=== PATIENT | female | born 1985 | race Caucasian/White ===

== ENCOUNTER 2022-10-18 15:24 | Emergency (ER) | payer OTHER, SELFPAY ==
[2022-10-18] VITALS (7 sets, daily range): BP systolic 91–133; BP diastolic 63–101; PULSE 102–114; RESP 16–18; O2SAT 93–99
[2022-10-18] MEDS: SODIUM CHLORIDE 0.9% IV 1,000 ML 999 ML IV CONT (15:52)
[2022-10-18 16:07] LABS: Hematocrit 36.7 % (37.0-47.0); Hemoglobin 12.6 g/dL (12.0-15.0); Immature Platelet Fraction Pct 4.9 % (0.9-11.2); Mean Corpuscular HGB Conc 34.3 g/dl (32-36); Mean Corpuscular Hemoglobin 32.3 pg (26-34); Mean Corpuscular Volume 94.1 fl (80-100); Mean Platelet Volume 10.2 fl (7.4-10.4); Platelet Count Result 78 k/mm3 (150-375); Red Cell Distribution Width 13.8 % (11.5-14.5); White Blood Count 3.5 K/mm3 (4.5-10.0)
[2022-10-18 16:15] LABS: Alanine Aminotransferase 23 U/L (6-35); Albumin Level 4.6 g/dL (3.5-5.1); Alkaline Phosphatase 97 U/L (38-126); Anion Gap 16 mmol/L (8-16); Aspartate Amino Transferase 86 U/L (14-36); Bilirubin,Total 0.6 mg/dL (0.2-1.3); Blood Urea Nitrogen 6 mg/dL (7-17); Calcium 8.3 mg/dL (8.4-10.2); Carbon Dioxide 25 mmol/L (22-30); Chloride 98 mmol/L (98-107); Estimated CRCL calculation 98 ml/min; Estimated Glomerular Filt Rate > 60; Glucose 89 mg/dL (65-110); Lipase 209 U/L (23-300); Sodium 139 mmol/L (137-145)
[2022-10-18 16:35] LABS: Basophils Absolute Manual 0.03 K/mm3 (0.0-0.1); Basophils Percent Manual 1 % (0-1); Lymphocytes Absolute Manual 1.64 K/mm3 (1.1-4.5); Monocytes Absolute Manual 0.07 K/mm3 (0.1-0.90); Monocytes Percent Manual 2 % (3-9); Neutrophils Percent Manual 50 % (46-73); Total Cells Counted 100
[2022-10-18 16:36] LABS: Ethanol 515 mg/dL (<10); Platelet Estimate Decreased (Adequate); Schistocytes None Seen (NORMAL)
--- NOTE | 2022-10-18 18:15 | PC.NURSE ---
pts boyfriend, Rico Sellers, contacted ed. [facility] pt has been an alcoholic for several years. [facility] for last 2 weeks drinking has increased heavily and pt has stopped eating and caring for herself. [facility] pt has been admitted multiple times for etoh and being an unmedicated. [facility] pt can not come home.
--- NOTE | 2022-10-18 18:43 | ED.GENADULT ---
HPI - General Adult General Chief complaint: Alcohol Stated complaint: nosebleed, alcohol abuse Time Seen by Provider: 10/18/22 15:39 History of Present Illness HPI narrative: Patient is a 37-year-old female who presents ER with alcohol intoxication and epistaxis. She reports she started having nosebleed today. Denies trauma. She reports that she drinks 6 bottles of wine a day but is only had a couple drinks today. Denies fevers or chills or sweats. No chest pain or extremity discomfort. Related Data Allergies Allergy/AdvReac Type Severity Reaction Status Date / Time No Known Allergies Allergy Verified 10/18/22 17:03 Review of Systems Review of Systems: All systems reviewed & are unremarkable except as noted in HPI and below Constitutional: Constitutional: Denies chills, Denies fatigue and Denies fever(s) ENT: Reports epistaxis, Denies nasal congestion and Denies sore throat Cardiovascular: Cardiovascular: Denies chest pain, Denies rapid heart rate and Denies radiating jaw, neck or arm pain Respiratory: Respiratory: Denies cough and Denies dyspnea Gastrointestinal: Gastrointestinal: Denies abdominal pain and Denies nausea PMFSH Past Medical History Medical History (Updated 10/20/22 @ 00:00 by Jesus Nelson) History of alcoholism Surgical History Surgical History (Updated 10/18/22 @ 18:45 by Win Diaz MD) H/O breast augmentation Social History Social History (Updated 10/18/22 @ 18:45 by Win Diaz MD) Alcohol intake: current Alcohol use details: 6 bottles of wine a day. Exam Narrative: GENERAL: Intoxicated-appearing, well-nourished, and in no acute distress. HEAD: Normocephalic, atraumatic. EYES: PERRL and EOMI. ENT: Mucous membranes moist. Epistaxis right nare. CHEST: Clear to auscultation. No respiratory distress. HEART: Regular rate and rhythm. Normal peripheral pulses. ABDOMEN: Soft, nontender, nondistended, normal active bowel sounds. EXTREMITIES: Normal range of motion. No edema. SKIN: Warm, dry, no rash. NEURO: Alert and oriented x3. Course Course Emergency Course: Patient resting comfortably and clinically sober. Alcohol level less than 10. Patient did receive some chlordiazepoxide overnight for withdrawal symptoms. Patient feels comfortable with discharge and plans on going to [place] for inpatient alcohol rehabilitation. Vital Signs Vital signs: Vital Signs Pulse Rate 114 H 10/18/22 15:35 Respiratory Rate 16 10/18/22 15:35 Blood Pressure 133/101 H 10/18/22 15:35 Temperature 98.3 F 10/19/22 08:22 Pulse Rate 99 10/19/22 08:22 Respiratory Rate 20 10/19/22 08:22 Blood Pressure 107/79 10/19/22 08:22 Pulse Oximetry 98 10/19/22 08:22 Oxygen Delivery Room Air 10/18/22 15:37 Medical Decision Making Vital Signs Vital Signs: Vital Signs Pulse Rate 114 H 10/18/22 15:35 Respiratory Rate 16 10/18/22 15:35 Blood Pressure 133/101 H 10/18/22 15:35 Temperature 98.3 F 10/19/22 08:22 Pulse Rate 99 10/19/22 08:22 Respiratory Rate 20 10/19/22 08:22 Blood Pressure 107/79 10/19/22 08:22 Pulse Oximetry 98 10/19/22 08:22 Oxygen Delivery Room Air 10/18/22 15:37 Lab Data 10/18/22 15:45 10/18/22 15:45 Labs: Lab Results 10/18/22 10/18/22 10/18/22 Range/Units 15:45 15:45 15:45 WBC 3.5 L (4.5-10.0) K/mm3 RBC 3.90 L (4.2-5.4) M/mm3 Hgb 12.6 (12.0-15.0) g/dL Hct 36.7 L (37.0-47.0) % MCV 94.1 (80-100) fl MCH 32.3 (26-34) pg MCHC 34.3 (32-36) g/dl RDW 13.8 (11.5-14.5) % Plt Count 78 L (150-375) k/mm3 MPV 10.2 (7.4-10.4) fl Immature Gran % (Auto) Not Reportable Neut % (Auto) Not Reportable Lymph % (Auto) Not Reportable [place] % (Auto) Not Reportable Eos % (Auto) Not Reportable Baso % (Auto) Not Reportable Lymph # (Auto) Not Reportable [place] # (Auto) Not Reportable Eos #
--- NOTE | 2022-10-18 19:42 | PC.NURSE ---
darwin ochoa [phone]
[2022-10-19] MEDS: LORazepam INJ (*CRX) 2 MG/ML VIAL IV PUSH (01:40)
[2022-10-19] MEDS: ONDANSETRON INJ 4 MG/2 ML VIAL IV PUSH (01:40)
[2022-10-19 06:39] LABS: Ethanol < 10 mg/dL (<10)
[2022-10-19] MEDS: chlordiazePOXIDE (*CRX) 25 MG CAPSULE 50 MG PO (06:51)
[2022-10-19 07:27] VITALS: BP 98/68; PULSE 106; RESP 18; O2SAT 98
[2022-10-19 08:22] VITALS: BP 107/79; PULSE 99; RESP 20; TEMP 36.8; O2SAT 98
== END 2022-10-19 08:24 | disposition home or self-care (01) ==
PROVIDERS: Emergency Medicine; Emergency Provider Emergency Medicine
DX: R04.0 Epistaxis (principal); F10.129 Alcohol abuse with intoxication, unspecified; Y90.8 Blood alcohol level of 240 mg/100 ml or more
CPT/HCPCS: 36415; 80053; 80307; 83690; 85025; 85055; 96361; 96374; 96375; 99284; A9270; J2060; J2405; J7030

== ENCOUNTER 2022-10-31 18:38 | Emergency (ER) | payer MEDICAID, OTHER, SELFPAY ==
[2022-10-31] VITALS (7 sets, daily range): BP systolic 113–114; BP diastolic 75–83; PULSE 87–115; RESP 20; TEMP 36.7; O2SAT 95–100
--- NOTE | ~2022-10-31 | CT_ITS ---
EXAMINATION: CT facial & cervical spine wo DATE: 11/01/2022 00:34 INDICATION: Head injury. TECHNIQUE: Computed tomography (CT) of the maxillofacial region and cervical spine was performed with out intravenous contrast. Automated exposure control and iterative reconstruction technique were empl oyed. The dose-length product was 252.09 mGy-cm. COMPARISON: None FINDINGS: MAXILLOFACIAL CT: The orbits are normal. There is left cheek soft tissue swelling. There is mild mucosal thickening in the ethmoid sinuses. There is rightward deviation of the nasal septum. No fracture. CERVICAL SPINE CT: There is 6 degrees dextrocurvature of cervical spine. Vertebral body heights are normal. Intervertebr al disc heights are normal. The following disc levels are specifically discussed: C2-C3: There is no uncovertebral joint osteoarthritis. There is mild bilateral facet joint osteoarthr itis. There is no neural foraminal stenosis. There is no central canal stenosis. C3-C4: There is mild left uncovertebral joint osteoarthritis. There is mild bilateral facet joint ost eoarthritis. There is no neural foraminal stenosis. There is no central canal stenosis. C4-C5: There is no uncovertebral joint osteoarthritis. There is no facet joint osteoarthritis. There is no neural foraminal stenosis. There is no central canal stenosis. C5-C6: There is mild bilateral uncovertebral joint osteoarthritis. There is no facet joint osteoarthr itis. There is no neural foraminal stenosis. There is no central canal stenosis. C6-C7: There is no uncovertebral joint osteoarthritis. There is no facet joint osteoarthritis. There is no neural foraminal stenosis. There is no central canal stenosis. C7-T1: There is no uncovertebral joint osteoarthritis. There is mild bilateral facet joint osteoarthr itis. There is no neural foraminal stenosis. There is no central canal stenosis. IMPRESSION: 1. No fracture. 2. Mild cervical spondylosis. Reviewed, dictated and finalized at location A. FARMER
--- NOTE | ~2022-10-31 | CT_ITS ---
EXAMINATION: CT brain wo con DATE: 11/01/2022 00:34 INDICATION: Head injury. TECHNIQUE: Computed tomography (CT) of the head was performed without intravenous contrast. The mA wa s adjusted according to patient size. Iterative reconstruction technique was employed. The dose-lengt h product was 605.33 mGy-cm. COMPARISON: None FINDINGS: There is no intracranial hemorrhage, acute infarction, or abnormal intracranial mass lesion . There are scattered areas of low attenuation in the cerebral white matter. The ventricles are norm al in size. There is mild mucosal thickening in the ethmoid sinuses. The mastoid air cells are normal . The orbits are normal. IMPRESSION: 1. Mild nonspecific cerebral white matter disease. The differential diagnosis includes premature retail property manager farrah small vessel ischemic disease (especially if the patient has cardiovascular risk factors), demyel inating disease such as multiple sclerosis, drug abuse, vasculitis, or reactive astrocytosis (gliosis ) secondary to nonspecific etiology. Reviewed, dictated and finalized at location A. 3RD MATE IMPRESSION: 1. Mild nonspecific cerebral white matter disease. The differential diagnosis i ncludes premature chronic small vessel ischemic disease (especially if the jazmin ent has cardiovascular risk factors), demyelinating disease such as multiple sc lerosis, drug abuse, vasculitis, or reactive astrocytosis (gliosis) secondary t o nonspecific etiology.
[2022-11-01] VITALS (9 sets, daily range): BP systolic 116–121; BP diastolic 85–95; PULSE 67; RESP 16; O2SAT 96–100
--- NOTE | 2022-11-01 00:15 | ED.GENADULT ---
HPI - General Adult General Chief complaint: Alcohol <RED Tan Last Filed: 11/01/22 02:01> Stated complaint: ETOH, nose bleed <RED Tan Last Filed: 11/01/22 02:01> Time Seen by Provider: 10/31/22 22:57 <RED Tan Last Filed: 11/01/22 02:01> Source: patient and old records reviewed <RED Tan Last Filed: 11/01/22 02:01> Mode of arrival: EMS <RED Tan Last Filed: 11/01/22 02:01> Limitations: intoxication <RED Tan Last Filed: 11/01/22 02:01> History of Present Illness HPI narrative: Patient is a 37-year-old female who presents to the ED via EMS with report of alcohol intoxication and epistaxis. Per EMS report, they were called due to patient having bilateral epistaxis. She was noted to be intoxicated and reported drinking 2 bottles of wine today. Patient does report that she drinks daily, anywhere from 2-6 bottles of wine per day. She does not remember falling today. She does have an area of bruising to her left facial cheek. She states she lives with a man named Suzie and believes that he called for the ambulance. Patient denies any headache, dizziness, CP, SOB, neck pain, vision changes, nausea, vomiting, other areas of pain currently. <RED Tan Last Filed: 11/01/22 02:01> Related Data Allergies/adverse reactions: Allergies Allergy/AdvReac Type Severity Reaction Status Date / Time No Known Allergies Allergy Verified 10/18/22 17:03 <RED Tan Last Filed: 11/01/22 02:01> Review of Systems Review of Systems: CONSTITUTIONAL: Denies fever, chills, or sweats. EYES: Denies visual changes. CARDIOVASCULAR: Denies chest pain. RESPIRATORY: Denies dyspnea. GASTROINTESTINAL: Denies abdominal pain, nausea, vomiting. MUSCULOSKELETAL: Denies neck pain, back pain, joint pain, or myalgia. NEUROLOGIC: See HPI. <Meli Carey PA-C - Last Filed: 11/01/22 02:01> All systems reviewed & are unremarkable except as noted in HPI and below <Meli Carey PA-C - Last Filed: 11/01/22 02:01> [facility] Past Medical History Medical History: Medical History Bipolar 2 disorder History of alcoholism <Meli Carey PA-C - Last Filed: 11/01/22 02:01> Surgical History Surgical History: Surgical History H/O breast augmentation <Meli Carey PA-C - Last Filed: 11/01/22 02:01> Social History Social History: Social History Alcohol intake: current Alcohol use details: 6 bottles of wine a day. <Meli Carey PA-C - Last Filed: 11/01/22 02:01> Exam Narrative: GENERAL: Mildly disheveled appearing, thin, non-toxic, in no acute distress. HEAD: Normocephalic. Area of ecchymosis, swelling/contusion, tenderness to palpation over L facial cheek. No wounds. EYES: PERRLA/EOMI, conjunctiva clear. ENT: Dried blood to bilateral nares. No active bleeding. No septal hematoma. No significant tenderness to bridge of nose. NECK: Supple. No adenopathy, no masses. No midline spinal tenderness. RESPIRATORY: Airway patent, respirations nonlabored. Clear to auscultation bilaterally, no rales, rhonchi, wheezing. CARDIOVASCULAR: Regular rate and rhythm without murmurs, rubs, or gallops. Radial pulses 2+ and equal bilaterally. ABDOMINAL: Soft, nontender, nondistended, no hepatosplenomegaly. Normoactive BS. MUSCULOSKELETAL: Moves all extremities. Strength/ROM intact without gross deformities. SKIN: Warm, dry, normal color. No rashes. NEURO: A&O X3. Speech clear. Cranial nerves II-XII grossly intact. Steady gait. No ataxic movements. No focal deficits. PSYCHIATRIC: Appropriate mood and affect. Normal interaction. <Meli Carey PA-C -
[2022-11-01] MEDS: SODIUM CHLORIDE 0.9% IV 1,000 ML 999 ML IV CONT (01:20)
== END 2022-11-01 02:14 | disposition home or self-care (01) ==
PROVIDERS: Emergency Provider Physician Assistant
DX: F10.129 Alcohol abuse with intoxication, unspecified (principal); S09.90XA Unspecified injury of head, initial encounter; R04.0 Epistaxis; W19.XXXA Unspecified fall, initial encounter
CPT/HCPCS: 70450; 70486; 72125; 96360; 99284; J7030

== ENCOUNTER 2022-12-27 13:00 | Emergency (ER) | payer OTHER, MEDICAID, SELFPAY ==
[2022-12-27] VITALS (44 sets, daily range): BP systolic 81–114; BP diastolic 55–82; PULSE 66–89; RESP 7–20; TEMP 36.5; O2SAT 94–100
--- NOTE | ~2022-12-27 | CT_ITS ---
EXAMINATION: CT brain wo con DATE: 12/27/2022 14:02 INDICATION: Head injury. TECHNIQUE: Computed tomography (CT) of the head was performed without intravenous contrast. The mA wa s adjusted according to patient size. Iterative reconstruction technique was employed. The dose-lengt h product was 605.33 mGy-cm. COMPARISON: Head CT 11/01/2022 FINDINGS: There is no intracranial hemorrhage, acute infarction, or abnormal intracranial mass lesion . There are scattered areas of low attenuation in the cerebral white matter. The ventricles are jumana l in size. The orbits are normal. There is left periorbital soft tissue swelling. There is mild mucos al thickening in the paranasal sinuses. The mastoid air cells are normal. IMPRESSION: 1. Stable mild nonspecific cerebral white matter disease. The differential diagnosis includes prematu re chronic small vessel ischemic disease (especially if the patient has cardiovascular risk factors), demyelinating disease such as multiple sclerosis, drug abuse, vasculitis, or reactive astrocytosis ( gliosis) secondary to nonspecific etiology. Reviewed, dictated and finalized at location A. IMPRESSION: 1. Stable mild nonspecific cerebral white matter disease. The differential diag nosis includes premature chronic small vessel ischemic disease (especially if t he patient has cardiovascular risk factors), demyelinating disease such as mult iple sclerosis, drug abuse, vasculitis, or reactive astrocytosis (gliosis) seco ndary to nonspecific etiology.
--- NOTE | ~2022-12-27 | CT_ITS ---
EXAMINATION: CT facial & cervical spine wo DATE: 12/27/2022 14:02 INDICATION: Status post fall. Head trauma. TECHNIQUE: Computed tomography (CT) of the maxillofacial region and cervical spine was performed with out intravenous contrast. The dose-length product was 173.48 mGy-cm. Automated exposure control and i terative reconstruction technique were employed. COMPARISON: CT dated 11/01/2022 FINDINGS: MAXILLOFACIAL CT: No fracture. Rightward nasal septal deviation. Orbits intact. Left-sided robert bullosa. CERVICAL SPINE CT: Normal cervical alignment. Vertebral body and disc heights are preserved. Craniovertebral junction wi thin normal limits. No evidence for perched facet. No spinal stenosis. No paraspinal soft tissue abno rmality. Lung apices are unremarkable. IMPRESSION: 1. No acute fracture. Reviewed, dictated and finalized at location L. IMPRESSION: 1. No acute fracture.
--- NOTE | ~2022-12-27 | XR_ITS ---
EXAMINATION: XR chest 1V DATE: 12/27/2022 14:09 INDICATION: Fall. TECHNIQUE: A single frontal view of the chest was obtained. COMPARISON: None. FINDINGS: The chest demonstrates clear lungs without pneumonia, pleural effusion, or pneumothorax. Th e heart size is normal. There are bilateral breast implants. Surgical clips overlie left abdomen. IMPRESSION: 1. No acute cardiopulmonary disease. Reviewed, dictated and finalized at location A.
--- NOTE | 2022-12-27 13:20 | ED.ALCOHOL ---
HPI - Alcohol General Chief Complaint: Alcohol <Denise Abbasi MD - Last Filed: 12/27/22 22:31> Stated Complaint: etoh-fall <Denise Abbasi MD - Last Filed: 12/27/22 22:31> Time Seen by Provider: 12/27/22 13:19 <Denise Abbasi MD - Last Filed: 12/27/22 22:31> Source: EMS <Denise Abbasi MD - Last Filed: 12/27/22 22:31> Mode of arrival: EMS <Denise Abbasi MD - Last Filed: 12/27/22 22:31> Limitations: intoxication <Denise Abbasi MD - Last Filed: 12/27/22 22:31> History of Present Illness HPI narrative: Pt is a 37 yo female transported via EMS for altered mental status. Patient reportedly has a history of alcohol abuse, is a daily heavy drinker. Patient and boyfriend recently ended their relationship secondary to her alcohol use, he had called EMS because she had texted him that she was sitting in his driveway in her car. Patient's ex-boyfriend contacted EMS to check on her. At the time of their arrival, patient was noted to be intoxicated, oriented to person, place, not to time. She had bruising overlying the left orbital area without significant ecchymoses. She did report fall but cannot explain circumstances of the fall to EMS. Patient with borderline hypotension in route, other vital signs stable. Patient was placed in a c-collar. The time of my assessment patient is alert and oriented to person, can identify she is at a hospital and can identify the state is [place]. Cannot identify name of hospital, name of city, date. She cannot identify the year. Patient reports that she fell but does not know when or how she fell. Patient reports that she drinks daily, but cannot state how much she drank today. History is limited secondary to her intoxication. History was obtained and was completely via EMS. Reportedly, patient has had multiple admissions at [facility]. Prior to this, patient was living in [place], [place] for some time. <Denise Abbasi MD - Last Filed: 12/27/22 22:31> Related Data Home Medications: Home Medications Medication Instructions Recorded Confirmed ferrous sulfate 325 mg (65 mg mg 12/27/22 12/27/22 iron) tablet gabapentin 300 mg capsule mg 12/27/22 mirtazapine 15 mg tablet mg 12/27/22 quetiapine 100 mg tablet mg 12/27/22 trazodone 100 mg tablet mg 12/27/22 <Denise Abbasi MD - Last Filed: 12/27/22 22:31> Allergies/Adverse Reactions: Allergies Allergy/AdvReac Type Severity Reaction Status Date / Time No Known Allergies Allergy Verified 10/18/22 17:03 <Denise Abbasi MD - Last Filed: 12/27/22 22:31> Review of Systems Review of Systems: ROS unobtainable: Yes unobtainable due to mental status <Denise Abbasi MD - Last Filed: 12/27/22 22:31> PMFSH Past Medical History Medical History: Medical History Bipolar 2 disorder History of alcoholism <Denise Abbasi MD - Last Filed: 12/27/22 22:31> Surgical History Surgical History: Surgical History H/O breast augmentation <Denise Abbasi MD - Last Filed: 12/27/22 22:31> Social History Social History: Social History Alcohol intake: current Alcohol use details: 6 bottles of wine a day. <Denise Abbasi MD - Last Filed: 12/27/22 22:31> Exam Narrative: Nursing note and vitals reviewed. CONSTITUTIONAL: The patient appears well-developed and well-nourished. Intoxicated. HEAD: Normocephalic, left superior orbital edema, no significant ecchymosis EYES: PERRL, EOMI, normal conjunctiva, anicteric EARS: External ears clear bilaterally, no hemotympanum MOUTH: OP clear, no erythema, exudates NECK: midline trachea, supple, FROM. Cervical collar in place. No midline cervical spinal tenderness. CARDIOVASCULAR: Normal rate, regular rhythm, normal heart sounds and intact
--- NOTE | 2022-12-27 13:39 | ECG_ITS ---
Measurements Intervals [place] Rate: 76 P: 64 WA: 136 QRS: 70 QRSD: 113 T: 62 QT: 423 QTc: 477 Interpretive Statements SINUS RHYTHM INCOMPLETE RIGHT BUNDLE BRANCH BLOCK BORDERLINE ECG NO PREVIOUS ECG AVAILABLE FOR COMPARISON Electronically Signed On 12-28-2022 16:28:16 CDT by Jules Herzog M.D.
[2022-12-27 14:06] LABS: Basophils Absolute Auto 0.1 K/mm3 (0.0-0.1); Basophils Percent Auto 1.4 % (0.2-1.2); Hematocrit 33.3 % (37.0-47.0); Immature Granulocyte Absolute 0.03 K/mm3 (0.00-0.031); Immature Granulocyte Percent A 0.7 % (0-0.5); Lymphocytes Percent Auto 55.4 % (18.3-44.2); Mean Corpuscular Hemoglobin 32.9 pg (26-34); Mean Corpuscular Volume 99.7 fl (80-100); Mean Platelet Volume 9.2 fl (7.4-10.4); Monocytes Absolute Auto 0.3 K/mm3 (0.1-0.6); Monocytes Percent Auto 7.5 % (2.6-8.5); Neutrophils Absolute Auto 1.4 K/mm3 (1.3-6.7); Platelet Count Result 395 k/mm3 (150-375); Red Blood Count 3.34 M/mm3 (4.2-5.4); White Blood Count 4.2 K/mm3 (4.5-10.0)
[2022-12-27] MEDS: SODIUM CHLORIDE 0.9% IV 1,000 ML 999 ML IV CONT (14:16)
[2022-12-27 14:27] LABS: Alanine Aminotransferase 27 U/L (6-35); Albumin Level 3.7 g/dL (3.5-5.1); Alkaline Phosphatase 102 U/L (38-126); Anion Gap 7 mmol/L (8-16); Aspartate Amino Transferase 49 U/L (14-36); Bilirubin,Total 0.3 mg/dL (0.2-1.3); Blood Urea Nitrogen 7 mg/dL (7-17); Calcium 8.3 mg/dL (8.4-10.2); Carbon Dioxide 31 mmol/L (22-30); Chloride 110 mmol/L (98-107); Estimated CRCL calculation 117 ml/min; Estimated Glomerular Filt Rate > 60; Glucose 94 mg/dL (65-110); Lipase 239 U/L (23-300); Potassium 3.2 mmol/L (3.4-5.0); Sodium 148 mmol/L (137-145)
[2022-12-27 14:37] LABS: Acetaminophen < 10 ug/mL (10-30); Salicylate < 1.0 mg/dL (2-20)
[2022-12-27 14:58] LABS: Ethanol 484 mg/dL (<10)
[2022-12-27] MEDS: SODIUM CHLORIDE 0.9% IV 1,000 ML 250 ML IV CONT (16:37)
[2022-12-27 17:15] LABS: Appearance Urine Clear (Clear); Bilirubin Urine Negative (Negative); Blood Urine Negative (Negative); Color Urine Yellow (Yellow); Glucose Urine UA Negative (Negative); Ketones Urine Negative (Negative); Leukocyte Esterase Ur Negative LEU/UL (Negative); Nitrate Urine Negative (Negative); Protein Urine Negative (Negative); Specific Grav Ur 1.012 (1.001-1.035); Urobilinogen Urine 0.2 mg/dL (<2.0)
[2022-12-27 17:16] LABS: Add Urine Microscopic? NO
[2022-12-27 17:30] LABS: Amphetamine Screen Urine Negative (Negative); Barbiturate Screen Urine Positive (Negative); Benzodiazepines Screen Urine Positive (Negative); Cannabinoid Screen Urine Negative (Negative); Cocaine Screen Urine Negative (Negative); Methadone Screen Urine Negative (Negative); Opiate Screen Urine Negative (Negative); Phencyclidine Screen Urine Negative (Negative)
[2022-12-27 21:50] LABS: Anion Gap 4 mmol/L (8-16); Blood Urea Nitrogen 7 mg/dL (7-17); Carbon Dioxide 29 mmol/L (22-30); Chloride 112 mmol/L (98-107); Estimated CRCL calculation 143 ml/min; Estimated Glomerular Filt Rate > 60; Glucose 95 mg/dL (65-110); Potassium 3.3 mmol/L (3.4-5.0); Sodium 145 mmol/L (137-145)
[2022-12-28] VITALS (10 sets, daily range): BP systolic 96–102; BP diastolic 64–75; PULSE 62–84; RESP 0–16; O2SAT 95–100
== END 2022-12-28 05:09 | disposition home or self-care (01) ==
PROVIDERS: Emergency Medicine; Emergency Provider Emergency Medicine
DX: F10.229 Alcohol dependence with intoxication, unspecified (principal); Y90.8 Blood alcohol level of 240 mg/100 ml or more; F31.81 Bipolar II disorder; I45.10 Unspecified right bundle-branch block; R90.82 White matter disease, unspecified
CPT/HCPCS: 36415; 70450; 70486; 71045; 72125; 80048; 80053; 80307; 81003; 83690; 85025; 93005; 96365; 96366; 99284; J3411; J7030; J7121

== ENCOUNTER 2023-02-15 03:01 | Emergency (ER) | payer MEDICAID, SELFPAY ==
[2023-02-15] VITALS (20 sets, daily range): BP systolic 74–105; BP diastolic 42–75; PULSE 67–87; RESP 10–18; TEMP 36.6; O2SAT 97–99
--- NOTE | 2023-02-15 04:01 | ED.GENADULT ---
HPI - General Adult General Chief complaint: Alcohol <Artemio Jenkins MD - Last Filed: 02/15/23 06:22> Stated complaint: etoh <Artemio Jenkins MD - Last Filed: 02/15/23 06:22> Time Seen by Provider: 02/15/23 03:09 <Artemio Jenkins MD - Last Filed: 02/15/23 06:22> History of Present Illness HPI narrative: Patient 37-year-old female who presents emergency department with chief complaint of alcohol intoxication. Patient reports that she has been drinking heavily and was sitting in her front yard and someone called an ambulance. The patient denies suicidal or homicidal ideation but does report that she has been drinking heavily this evening. <Artemio Jenkins MD - Last Filed: 02/15/23 06:22> Related Data Home medications: Home Medications Medication Instructions Recorded Confirmed ferrous sulfate 325 mg (65 mg mg 12/27/22 12/27/22 iron) tablet gabapentin 300 mg capsule mg 12/27/22 mirtazapine 15 mg tablet mg 12/27/22 quetiapine 100 mg tablet mg 12/27/22 trazodone 100 mg tablet mg 12/27/22 <Artemio Jenkins MD - Last Filed: 02/15/23 06:22> Allergies/adverse reactions: Allergies Allergy/AdvReac Type Severity Reaction Status Date / Time No Known Allergies Allergy Verified 10/18/22 17:03 <Artemio Jenkins MD - Last Filed: 02/15/23 06:22> Review of Systems Review of Systems: A 10 system review of systems was completed on the patient and is negative except for what is stated in the HPI. Nursing and ancillary documentation was reviewed. <Artemio Jenkins MD - Last Filed: 02/15/23 06:22> PMF Past Medical History Medical History: Medical History Bipolar 2 disorder History of alcoholism <Artemio Jenkins MD - Last Filed: 02/15/23 06:22> Surgical History Surgical History: Surgical History H/O breast augmentation <Artemio Jenkins MD - Last Filed: 02/15/23 06:22> Social History Social History: Social History Alcohol intake: current Alcohol use details: 6 bottles of wine a day. <Artemio Jenkins MD - Last Filed: 02/15/23 06:22> Exam Narrative: GENERAL: Well-appearing, well-nourished, and in no acute distress. HEAD: Normocephalic, atraumatic. EYES: PERRLA and EOMI. ENT: Nares clear, no rhinorrhea or epistaxis. Mucous membranes moist. NECK: Supple. CHEST: Clear to auscultation. No respiratory distress. HEART: Regular rate and rhythm. No murmur heard. Normal peripheral pulses. ABDOMEN: Soft, nontender, nondistended, normal active bowel sounds. EXTREMITIES: Normal range of motion. No edema. SKIN: Warm, dry, no rash. NEURO: No focal deficits. Alert and oriented x3. PSYCH: Normal mood and affect. <Artemio Jenkins MD - Last Filed: 02/15/23 06:22> Course Reevaluation(s) Reevaluation #1: Patient is wide awake and eating. She denies any dizziness or lightheadedness. She is clinically sober and ambulatory with steady gait. <Ute Lynn MD - Last Filed: 02/15/23 17:32> Date: 02/15/23 <Ute Lynn MD - Last Filed: 02/15/23 17:32> Time: 14:21 <Ute Lynn MD - Last Filed: 02/15/23 17:32> Vital Signs Vital signs: Vital Signs Temperature 97.9 F 02/15/23 03:08 Pulse Rate 86 02/15/23 03:08 Respiratory Rate 18 02/15/23 03:08 Blood Pressure 88/62 L 02/15/23 03:08 Pulse Oximetry 98 02/15/23 03:08 Temperature 97.9 F 02/15/23 03:08 Pulse Rate 72 02/15/23 14:15 Respiratory Rate 17 02/15/23 13:28 Blood Pressure 104/75 02/15/23 14:15 Pulse Oximetry 99 02/15/23 13:28 <Artemio Jenkins MD - Last Filed: 02/15/23 06:22> Vital Signs Temperature 97.9 F 02/15/23 03:08 Pu
[2023-02-15 04:32] LABS: Basophils Absolute Auto 0.1 K/mm3 (0.0-0.1); Basophils Percent Auto 1.2 % (0.2-1.2); Eosinophils Absolute Auto 0.1 K/mm3 (0-0.3); Eosinophils Percent Auto 1.2 % (0-4.4); Hematocrit 33.5 % (37.0-47.0); Hemoglobin 10.8 g/dL (12.0-15.0); Immature Granulocyte Absolute 0.01 K/mm3 (0.00-0.031); Immature Granulocyte Percent A 0.2 % (0-0.5); Lymphocytes Absolute Auto 2.79 K/mm3 (0.9-3.2); Lymphocytes Percent Auto 64.4 % (18.3-44.2); Mean Corpuscular HGB Conc 32.2 g/dl (32-36); Mean Corpuscular Hemoglobin 31.1 pg (26-34); Mean Corpuscular Volume 96.5 fl (80-100); Mean Platelet Volume 9.3 fl (7.4-10.4); Monocytes Absolute Auto 0.4 K/mm3 (0.1-0.6); Monocytes Percent Auto 8.1 % (2.6-8.5); Neutrophils Absolute Auto 1.1 K/mm3 (1.3-6.7); Neutrophils Percent Auto 24.9 % (45.5-73.1); Platelet Count Result 333 k/mm3 (150-375); Red Blood Count 3.47 M/mm3 (4.2-5.4); Red Cell Distribution Width 13.9 % (11.5-14.5); White Blood Count 4.3 K/mm3 (4.5-10.0)
[2023-02-15 04:46] LABS: Alanine Aminotransferase 26 U/L (6-35); Albumin Level 3.7 g/dL (3.5-5.1); Alkaline Phosphatase 66 U/L (38-126); Anion Gap 8 mmol/L (8-16); Aspartate Amino Transferase 42 U/L (14-36); Bilirubin,Total 0.2 mg/dL (0.2-1.3); Blood Urea Nitrogen 8 mg/dL (7-17); Calcium 8.1 mg/dL (8.4-10.2); Carbon Dioxide 28 mmol/L (22-30); Chloride 113 mmol/L (98-107); Estimated CRCL calculation 123 ml/min; Estimated Glomerular Filt Rate > 60; Glucose 82 mg/dL (65-110); Potassium 3.9 mmol/L (3.4-5.0); Sodium 149 mmol/L (137-145)
[2023-02-15] MEDS: SODIUM CHLORIDE 0.9% IV 1,000 ML 999 ML IV CONT ×2 (04:47→07:28)
[2023-02-15 04:55] LABS: Ethanol 433 mg/dL (<10)
--- NOTE | 2023-02-15 07:10 | PC.NURSE ---
report from nikita tang. pt resting in darkened room. iv fluids infusing wide open.
[2023-02-15] MEDS: SODIUM CHLORIDE 0.9% IV 500 ML 999 ML IV CONT (11:07)
--- NOTE | 2023-02-15 13:40 | PC.NURSE ---
notified MD Lynn of patient blood pressure being 88/60 denies symptoms. no no orders at this time.
--- NOTE | 2023-02-15 14:14 | PC.NURSE ---
health care coordinator notified that patient is requesting cab voucher for transport.
--- NOTE | 2023-02-15 14:28 | PCCCNOTE ---
Per ED nurse pt has no transportation; request cab voucher. Cab voucher provided to [address] [facility]
== END 2023-02-15 15:04 | disposition home or self-care (01) ==
PROVIDERS: Emergency Provider Emergency Medicine
DX: F10.229 Alcohol dependence with intoxication, unspecified (principal); Y90.8 Blood alcohol level of 240 mg/100 ml or more; E86.0 Dehydration; F31.81 Bipolar II disorder
CPT/HCPCS: 36415; 80053; 80307; 85025; 96360; 96361; 99283; J7030; J7040